=== PATIENT | female | born 1960 | race Caucasian/White ===

== ENCOUNTER → 2017-04-23 | Outpatient (CLI) | payer OTHER, MEDICARE ==
[~2017-04-23] MED LIST: ACET-1757 PO; BENZ100C4 PO; BISA10SU2 PR; CARV-39 PO; CEFD300C37 PO; COREG; DARB25DI SQ; DILANTIN; DOCU100T3 PO; DOXY100C2 PO; DOXY100T PO; ESCI5TAB7 PO; HEPA500024 SQ; HYDR-3240 PO; LANS30CA16 PO; LEXAPRO; LISI-167 PO; LISINOPRIL; PANT40TA3 PO; PHEN30CA PO; PREVACID
[2017-04-23 11:43] LABS: ASPARTATE AMINO TRANSFERASE 13 U/L (15-37); BLOOD UREA NITROGEN 42 mg/dL (7-18)
== END | disposition home or self-care (01) ==
LOC: STAR 10:15
PROVIDERS: ATTEND Surgery
DX: Z01.818 Encounter for other preprocedural examination (principal); C50.912 Malignant neoplasm of unspecified site of left female breast; R79.1 Abnormal coagulation profile
CPT/HCPCS: 36415; 80053; 85025; 85610; 85730; 93005

== ENCOUNTER → 2017-04-28 | Outpatient (CLI) | payer OTHER, MEDICARE | END | disposition home or self-care (01) | LOC: CFH 06:50 | PROVIDERS: ATTEND Surgery | DX: C50.912 Malignant neoplasm of unspecified site of left female breast (principal); R59.0 Localized enlarged lymph nodes ==

== ENCOUNTER 2017-04-30 07:46 | Day surgery (SDC) | payer OTHER, MEDICARE ==
[~2017-04-30] VITALS: Ht 152.4 cm; Wt 44.0 kg
[~2017-04-30 07:46] MED LIST changes: +BUPIVACAINE/PF-EPI 0.25% 1:200K ONE
[2017-04-30] MEDS ORDERED: SODIUM BICARBONATE 4.2%, 5ML ONE (08:06)
[2017-04-30] MEDS ORDERED: LIDOCAINE 1%, 20ML ONE (08:06)
[2017-04-30 09:02] VITALS: BP 123/73
[2017-04-30] MEDS ORDERED: LACTATED RINGERS 1,000 ML IV SCH (09:04)
[2017-04-30] MEDS ORDERED: SODIUM CHLORIDE 0.9% 1,000 ML IV SCH (09:11)
[2017-04-30] MEDS ORDERED: FENTANYL PF 250 MCG/5ML ONE (09:31)
[2017-04-30] MEDS ORDERED: MIDAZOLAM 1 MG/ML, 2ML ONE (09:31)
[2017-04-30] MEDS ORDERED: LIDOCAINE 1%, 2ML ONE (10:03)
[2017-04-30] MEDS ORDERED: ISOSULFAN BLUE 10 MG/ML, 5ML IV ONE (10:35)
[2017-04-30] MEDS ORDERED: CEFAZOLIN 1,000 MG ONE (10:40)
[2017-04-30] MEDS ORDERED: PROPOFOL 10 MG/ML, 20ML ONE (10:40)
[2017-04-30] MEDS ORDERED: DEXAMETHASONE 4 MG/ML, 1ML ONE (10:40)
[2017-04-30] MEDS ORDERED: EPHEDRINE 50 MG/ML, 1ML ONE (10:40)
[2017-04-30] MEDS ORDERED: ONDANSETRON 2MG/ML, 2ML ONE (10:40)
[2017-04-30] MEDS ORDERED: PHENYLEPHRINE 10 MG/ML ONE (10:40)
[2017-04-30] MEDS ORDERED: hydrALAzine 20 MG/ML, 1ML IV PRN (11:30)
[2017-04-30] MEDS ORDERED: FENTANYL PF 100 MCG/2ML IV PRN (11:30)
[2017-04-30] MEDS ORDERED: ALBUTEROL/IPRATROPIUM 2.5MG/0.5MG, 3 ML NPPB PRN (11:30)
[2017-04-30] MEDS ORDERED: MIDAZOLAM 1 MG/ML, 2ML IV PRN (11:30)
[2017-04-30] MEDS ORDERED: ONDANSETRON 2MG/ML, 2ML IVPush PRN (11:30)
[2017-04-30] MEDS ORDERED: PROMETHAZINE 25 MG/ML, 1ML IV PRN (11:30)
[2017-04-30] MEDS ORDERED: HYDROmorphone 1 MG/ML, 1ML IV PRN (11:30)
[2017-04-30] MEDS ORDERED: OXYcodone 5 MG/5 ML ORAL.SOL UDC PO PRN (11:30)
[2017-04-30] MEDS ORDERED: LABETALOL 5MG/ML, 20ML IV PRN (11:30)
[2017-04-30] MEDS ORDERED: ACETAMINOPHEN 325 MG TABLET PO PRN (11:30)
[2017-04-30] MEDS ORDERED: FENTANYL PF 100 MCG/2ML ONE (12:49)
[2017-04-30] MEDS ORDERED: ACETAMINOPHEN 650 MG/20.3 ML UDC ONE (12:49)
[2017-04-30] MEDS ORDERED: ACETAMINOPHEN 325 MG TABLET ONE (12:50)
[2017-04-30] MEDS ORDERED: OXYcodone 5 MG/5 ML ORAL.SOL UDC ONE (12:50)
== END 2017-04-30 15:15 | disposition home or self-care (01) ==
LOC: OUT 07:46 → EDSTATUS 10:30 → OUT 15:15
PROVIDERS: ATTEND Surgery
DX: C50.512 Malignant neoplasm of lower-outer quadrant of left female breast (principal); D24.2 Benign neoplasm of left breast; G40.909 Epilepsy, unspecified, not intractable, without status epilepticus; I12.0 Hypertensive chronic kidney disease with stage 5 chronic kidney disease or end stage renal disease; N18.6 End stage renal disease; Z99.2 Dependence on renal dialysis; K21.9 Gastro-esophageal reflux disease without esophagitis; Z86.73 Personal history of transient ischemic attack (TIA), and cerebral infarction without residual deficits; I25.10 Atherosclerotic heart disease of native coronary artery without angina pectoris; I25.2 Old myocardial infarction; Z87.891 Personal history of nicotine dependence; F32.9 Major depressive disorder, single episode, unspecified; Z95.828 Presence of other vascular implants and grafts
CPT/HCPCS: 19303; 38525; 38792; 88307; 88333; A9541; C1729; J0690; J1100; J2250; J2370; J2405; J2704; J3010; J3490

== ENCOUNTER → 2017-06-04 | Outpatient (CLI) | payer OTHER, MEDICARE ==
[~2017-06-04] MED LIST changes: -BUPIVACAINE/PF-EPI 0.25% 1:200K ONE
== END | disposition home or self-care (01) ==
LOC: CFH 08:34
PROVIDERS: ATTEND Internal Medicine Hematology & Oncology
DX: Z13.820 Encounter for screening for osteoporosis (principal); M85.88 Other specified disorders of bone density and structure, other site; C50.512 Malignant neoplasm of lower-outer quadrant of left female breast
CPT/HCPCS: 77080

== ENCOUNTER 2018-01-04 02:13 | Emergency (ER) | payer OTHER, MEDICARE ==
[~2018-01-04] VITALS: Ht 152.4 cm; Wt 45.3 kg
[~2018-01-04 02:13] MED LIST changes: +BENZ-17 PO; -BENZ100C4 PO; -LANS30CA16 PO; +LANS30CA60 PO
[2018-01-04 03:17] VITALS: BP 102/58
== END 2018-01-04 04:27 | disposition home or self-care (01) ==
LOC: ED 04:04
DX: J02.8 Acute pharyngitis due to other specified organisms (principal); I10 Essential (primary) hypertension; I25.2 Old myocardial infarction; Z87.891 Personal history of nicotine dependence; Z99.2 Dependence on renal dialysis
CPT/HCPCS: 71046; 93005; 99284

== ENCOUNTER → 2018-05-27 | Outpatient (CLI) | payer OTHER, MEDICARE | END | disposition home or self-care (01) | LOC: CFH 06:53 | PROVIDERS: ATTEND Internal Medicine Hematology & Oncology | DX: C50.512 Malignant neoplasm of lower-outer quadrant of left female breast (principal) | CPT/HCPCS: 76377; 76642 ==

== ENCOUNTER → 2019-03-14 | Outpatient (CLI) | payer MEDICARE, OTHER | END | disposition home or self-care (01) | LOC: CFH 09:52 | PROVIDERS: ATTEND Internal Medicine Hematology & Oncology | DX: Z12.31 Encounter for screening mammogram for malignant neoplasm of breast (principal); R23.4 Changes in skin texture; Z90.12 Acquired absence of left breast and nipple | CPT/HCPCS: 77067 ==

== ENCOUNTER 2019-06-07 12:14 | Outpatient (CLI) | payer MEDICARE, OTHER | END 2019-06-07 23:59 | disposition home or self-care (01) | LOC: CFH 12:14 | PROVIDERS: ATTEND Internal Medicine Hematology & Oncology | DX: Z08 Encounter for follow-up examination after completed treatment for malignant neoplasm (principal); M85.88 Other specified disorders of bone density and structure, other site; Z85.3 Personal history of malignant neoplasm of breast; Z90.12 Acquired absence of left breast and nipple | CPT/HCPCS: 76641; 77080 ==

== ENCOUNTER 2020-06-11 11:02 | Emergency (ER) | payer MEDICARE ==
[~2020-06-11] VITALS: Ht 152.4 cm; Wt 42.2 kg
[~2020-06-11 11:02] MED LIST changes: -ACET-1757 PO; +ACET-2065 PO; +AMOX1TAB12 PO; -BISA10SU2 PR; +BISA10SU4 PR; +GUAI200T37 PO
--- NOTE | 2020-06-11 11:25 | NUR ---
FIRST CONTACT WITH PT. PT BECAME DIZZY, FELL AND HIT BACK OF HEAD ON CEMENT ON THURSDAY. STATED SWELLING HAS REDUCED, STILL HAS MICHAUD, DENIED LOC AT SCENE. PT'S AOX4. RESPS EVEN AND UNLABORED. ALL MONITORS IN PLACE. 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 EDMD AT BEDSIDE EVALUATING AT THIS TIME. PT'S AT BEDSIDE WELL.
[2020-06-11] MEDS ORDERED: ACETAMINOPHEN 500 MG TABLET ONE (11:28)
[2020-06-11] MEDS ORDERED: ACETAMINOPHEN 500 MG TABLET PO ONE (11:30)
--- NOTE | 2020-06-11 11:36 | NUR ---
PT TO CT AT THIS TIME.
--- NOTE | 2020-06-11 11:36 | NUR ---
PT MEDICATED PER EMAR FOR PAIN. PT TOLERATED WELL.
[2020-06-11 12:27] VITALS: BP 96/51
--- NOTE | 2020-06-11 12:28 | NUR ---
Patient given discharge instructions and they have confirmed that they understand the instructions. PT HAS HYPOTENSION AT DC(96/51), EDMD NOTIFIED AND PT'S STATED"HER BP IS ALWAYS LOW." EDMD OK'D TO DC NOW.
== END 2020-06-11 12:29 | disposition home or self-care (01) ==
LOC: ED 11:59
DX: S00.03XA Contusion of scalp, initial encounter (principal); S09.90XA Unspecified injury of head, initial encounter; I10 Essential (primary) hypertension; R42 Dizziness and giddiness; R94.31 Abnormal electrocardiogram [ECG] [EKG]; M54.2 Cervicalgia; R51 Headache; I25.2 Old myocardial infarction; Z86.73 Personal history of transient ischemic attack (TIA), and cerebral infarction without residual deficits; W18.30XA Fall on same level, unspecified, initial encounter; Y93.89 Activity, other specified; Y92.009 Unspecified place in unspecified non-institutional (private) residence as the place of occurrence of the external cause; Y99.8 Other external cause status
CPT/HCPCS: 70450; 72125; 93005; 99285

== ENCOUNTER 2021-07-18 18:47 | Inpatient (IN) | payer MEDICARE, OTHER ==
[~2021-07-18] VITALS: Ht 152.4 cm; Wt 42.2 kg
[~2021-07-18 18:47] MED LIST changes: +HYDR-2214 PO; -HYDR-3240 PO
--- NOTE | 2021-07-18 19:18 | NUR ---
PT BROUGHT TO ROOM 21. CARE ASSUMED. 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
[2021-07-18] MEDS ORDERED: DEXAMETHASONE 4 MG TABLET ONE (19:23)
[2021-07-18] MEDS ORDERED: DIPHENHYDRAMINE 25 MG CAPSULE ONE (19:23)
[2021-07-18] MEDS ORDERED: FAMOTIDINE 20 MG TABLET ONE (19:23)
[2021-07-18] MEDS ORDERED: DEXAMETHASONE 4 MG TABLET PO ONE (19:30)
[2021-07-18] MEDS ORDERED: FAMOTIDINE 20 MG TABLET PO ONE (19:30)
[2021-07-18] MEDS ORDERED: DIPHENHYDRAMINE 25 MG CAPSULE PO ONE (19:30)
[2021-07-18] MEDS ORDERED: PLEASE ENTER HEIGHT AND WEIGHT MC SCH (19:30)
--- NOTE | 2021-07-18 20:16 | NUR ---
PT MOVED TO TRAUMA 3 ROOM, FOR INCREASED VIGILANCE PT HAS SWELLING TO THROAT, AND MOVED PER DR SMITH REQUEST. PT RESTING COMFORTABLY, O2 SAT 99%, CALM AND COOPERATIVE AND NO APPARENT RESP DISTRESS AT THIS TIME. PT PLACED ON CR MONITOR.
[2021-07-18] MEDS ORDERED: DIPHENHYDRAMINE 50 MG/ML, 1ML ONE (20:23)
[2021-07-18] MEDS ORDERED: EPINEPHRINE 1 MG/ML, 1ML ONE ×2 (20:23→21:30)
[2021-07-18] MEDS ORDERED: EPINEPHRINE 1 MG/ML, 1ML IM ONE ×2 (20:30→21:30)
[2021-07-18] MEDS ORDERED: DIPHENHYDRAMINE 50 MG/ML, 1ML IVPush ONE (20:30)
[2021-07-18] MEDS ORDERED: SODIUM CHLORIDE FLUSH 10ML SYR IVF ONE (20:30)
--- NOTE | 2021-07-18 20:36 | NUR ---
PIV TO LEFT HAND X2 ATTEMPT PLACED BY TASK RN, 22G AND FLUSHES SLOWLY. MEDS GIVEN PER MD ORDER. PT NOW HAVING EMESIS, CLEAR SECRETIONS. SUCTION SET UP AND AT BEDSIDE TO ASSIST PT. PT WITH EMESIS BAGS AND TOWELS PROVIDED. PT SAYS SHE HAS PAIN TO THE RIGHT SIDE OF HER BUTTOCKS. PT REPOSITIONED.
--- NOTE | 2021-07-18 20:46 | NUR ---
PT TAKEN TO CT SCAN, RN WITH PT, AND PT ON CR MONITOR.
[2021-07-18] MEDS ORDERED: OMNIPAQUE 350 MG/ML, 100ML BOTTLE ONE (20:54)
[2021-07-18 21:00] LABS: BASOPHILS % (AUTO) 1 % (0-1); EOSINOPHILS % (AUTO) 2 % (1-7); LYMPHOCYTES % (AUTO) 20 % (22-44); MEAN CORPUSCULAR HGB CONC 33.8 g/dL (32.4-35.8); MEAN PLATELET VOLUME 8.3 fL (7.4-10.4); MONOCYTES % (AUTO) 14 % (2-9); NEUTROPHILS % (AUTO) 63 % (42-75); PLATELET COUNT 106 x10^3/uL (130-400); RED BLOOD COUNT 2.51 x10^6/uL (3.82-5.3); RED CELL DISTRIBUTION WIDTH 13.5 % (9.6-15.2)
[2021-07-18 21:09] LABS: ALBUMIN 3.2 g/dL (3.4-5.0); ANION GAP 4 mmol/L (5-15); CALCIUM 8.2 mg/dL (8.5-10.1); CHLORIDE 99 mmol/L (98-107); CREATININE 4.93 mg/dL (0.55-1.02)
[2021-07-18] MEDS ORDERED: DEXAMETHASONE 4 MG/ML, 1ML ONE (21:30)
[2021-07-18] MEDS ORDERED: DEXAMETHASONE 4 MG/ML, 1ML IVPush ONE (21:30)
[2021-07-18] MEDS ORDERED: FAMOTIDINE 20 MG/2 ML ONE (21:43)
--- NOTE | 2021-07-18 21:49 | NUR ---
ENT MD AT BEDSIDE SPEAKING WITH PT AND TO PERFORM SCOPE OF THE THROAT. PT AWAKE AND ALERT, AIRWAY CURRENTLY INTACT. GOOD AERATION AND OXYGENATION, O2 SATS 98%
--- NOTE | 2021-07-18 21:58 | NUR ---
ENT SCOPED PTS NASOPHARYNGEAL AREA. PT TOLERATED WELL. PT TO BE ADMITTED, PER MD.
[2021-07-18] MEDS ORDERED: FAMOTIDINE 20 MG/2 ML IVPush ONE (22:00)
--- NOTE | 2021-07-18 22:21 | NUR ---
PT RESTING COMFORTABLY, NO ACUTE DISTRESS. AIRWAY INTACT AND OPEN, PT ON CR MONITOR, AND O2 SAT IS 95%.
--- NOTE | 2021-07-18 22:44 | NUR ---
WAITING ON BLOOD TYPE AND SCREEN RESULTS TO BE DONE TO TRANSFUSE PT WITH [facility]. PT RESTING COMFORTABLY, AND PLACED ON O2 NC FOR COMFORT. PT SLEEPING WITH LEGS DRAWN UP IN POSITION OF COMFORT, AND O2 SATS WERE 92% ON ROOM AIR. PT NOW 99% ON 2LPM NC. PT CALM AND COOPERATIVE. PTS WENT HOME FOR THE NIGHT. PER THE , THE PT HAS DIALYSIS TOMORROW THAT SHE WILL NEED. PT AND ADVISED THEY WILL BE TAKING CARE OF THAT HERE.
--- NOTE | 2021-07-18 23:08 | NUR ---
HOSPITALIST TO BEDSIDE TO [facility] PT.
[2021-07-18] MEDS ORDERED: POLYETHYLENE GLYCOL 17 GM PACKET PO PRN (23:30)
[2021-07-18] MEDS ORDERED: HYDROmorphone 2 MG/ML, 1ML IVPush PRN (23:30)
[2021-07-18] MEDS ORDERED: LABETALOL 5MG/ML, 20ML IVPush PRN (23:30)
[2021-07-18] MEDS ORDERED: ONDANSETRON 2MG/ML, 2ML IVPush PRN (23:30)
[2021-07-18 23:31] VITALS: BP 96/58
--- NOTE | 2021-07-18 23:33 | NUR ---
[facility] TRANSFUSION STARTED. SEE TRANSFUSION DOCUMENT.
[2021-07-19] VITALS: BP 105/52
--- NOTE | 2021-07-19 00:03 | NUR ---
REPORT AND CARE TO GREGG RN, IN CCU. PT TRANSFERRED TO ROOM 547 WITHOUT INCIDENT. [facility] INFUSING VIA 22G LEFT WRIST PIV, SITE SOFT AND FLAT AND NO REDNESS NOTED AT THIS TIME. PT CARE TRANSFERRED TO MRI ASSISTANT.
[2021-07-19 01:00] VITALS: BP 113/56
[2021-07-19 02:00] VITALS: BP 114/57
[2021-07-19 04:34] LABS: ANION GAP 7 mmol/L (5-15); BASOPHILS % (AUTO) 0 % (0-1); CALCIUM 8.8 mg/dL (8.5-10.1); CHLORIDE 97 mmol/L (98-107); CREATININE 5.38 mg/dL (0.55-1.02); EOSINOPHILS % (AUTO) 0 % (1-7); LYMPHOCYTES % (AUTO) 5 % (22-44); MEAN CORPUSCULAR HEMOGLOBIN 34.4 pg (27.0-34.8); MEAN CORPUSCULAR HGB CONC 34.2 g/dL (32.4-35.8); MEAN PLATELET VOLUME 8.2 fL (7.4-10.4); MONOCYTES % (AUTO) 3 % (2-9); NEUTROPHILS % (AUTO) 92 % (42-75); PLATELET COUNT 107 x10^3/uL (130-400); RED BLOOD COUNT 2.59 x10^6/uL (3.82-5.3); RED CELL DISTRIBUTION WIDTH 13.4 % (9.6-15.2)
[2021-07-19] MEDS: HEPARIN 5,000 UNITS/ML, 1ML SQ SCH ×3 (04:55→21:42)
[2021-07-19] MEDS: DEXAMETHASONE 4 MG/ML, 5ML IVPush SCH ×3 (04:55→21:41)
[2021-07-19 07:33] LABS: ALBUMIN 3.4 g/dL (3.4-5.0); BILIRUBIN, DIRECT 0.2 mg/dL (0.1-0.2)
[2021-07-19 07:35] LABS: BILIRUBIN,INDIRECT 0.4 mg/dL (0.0-2.0); BILIRUBIN,TOTAL 0.6 mg/dL (0.2-1.0); TOTAL PROTEIN 7.8 g/dL (6.4-8.2)
[2021-07-19] MEDS ORDERED: FAMOTIDINE 20 MG/2 ML IVPush SCH (09:00)
[2021-07-19] MEDS ORDERED: ARANESP 100 MCG/ML **ESRD SQ SCH (10:00)
[2021-07-19] MEDS ORDERED: ALBUMIN HUMAN 25% 100 ML IV PRN (16:00)
[2021-07-19] MEDS: DEXAMETHASONE 4 MG/ML, 1ML IVPush SCH (21:30)
[2021-07-19 21:39] VITALS: BP 116/71
[2021-07-20 03:55] VITALS: BP 121/73
[2021-07-20 05:35] LABS: ALBUMIN 3.7 g/dL (3.4-5.0); ANION GAP 6 mmol/L (5-15); BASOPHILS % (AUTO) 0 % (0-1); CALCIUM 9.1 mg/dL (8.5-10.1); CHLORIDE 100 mmol/L (98-107); EOSINOPHILS % (AUTO) 0 % (1-7); LYMPHOCYTES % (AUTO) 5 % (22-44); MEAN CORPUSCULAR HEMOGLOBIN 35.1 pg (27.0-34.8); MEAN CORPUSCULAR HGB CONC 34.9 g/dL (32.4-35.8); MEAN PLATELET VOLUME 8.8 fL (7.4-10.4); MONOCYTES % (AUTO) 4 % (2-9); NEUTROPHILS % (AUTO) 91 % (42-75); PLATELET COUNT 111 x10^3/uL (130-400); RED BLOOD COUNT 2.59 x10^6/uL (3.82-5.3); RED CELL DISTRIBUTION WIDTH 13.5 % (9.6-15.2)
[2021-07-20] MEDS: DEXAMETHASONE 4 MG/ML, 1ML IVPush SCH ×2 (06:36→12:44)
[2021-07-20] MEDS: HEPARIN 5,000 UNITS/ML, 1ML SQ SCH ×2 (06:37→12:43)
[2021-07-20 07:31] VITALS: BP 95/59
[2021-07-20] MEDS ORDERED: FAMOTIDINE 20 MG/2 ML IVPush SCH (09:00)
[2021-07-20 13:30] VITALS: BP 90/50
[2021-07-20] MEDS ORDERED: DEXA4TAB66 PO (14:59)
[2021-07-20] MEDS ORDERED: DEXAMETHASONE 4 MG TABLET PO SCH (17:00)
== END 2021-07-20 16:11 | disposition home or self-care (01) | DRG 915 ==
LOC: ED 21:31 → EDIP 22:53 → CCU 23:51 → 4EST 07-19 18:22
PROVIDERS: ADMIT Internal Medicine; ATTEND Internal Medicine
PROC: 30233K1 Transfusion of Nonautologous Frozen Plasma into Peripheral Vein, Percutaneous Approach (ICD-10-PCS; principal; 2021-07-18)
DX: T78.3XXA Angioneurotic edema, initial encounter (principal); J96.01 Acute respiratory failure with hypoxia; N18.6 End stage renal disease; D61.818 Other pancytopenia; E87.1 Hypo-osmolality and hyponatremia; I50.32 Chronic diastolic (congestive) heart failure; I13.2 Hypertensive heart and chronic kidney disease with heart failure and with stage 5 chronic kidney disease, or end stage renal disease; I42.8 Other cardiomyopathies; D53.9 Nutritional anemia, unspecified; D63.1 Anemia in chronic kidney disease; E11.22 Type 2 diabetes mellitus with diabetic chronic kidney disease; E87.6 Hypokalemia; E88.09 Other disorders of plasma-protein metabolism, not elsewhere classified; I25.2 Old myocardial infarction; I34.0 Nonrheumatic mitral (valve) insufficiency; Z20.822 Contact with and (suspected) exposure to COVID-19; Z85.3 Personal history of malignant neoplasm of breast; Z86.718 Personal history of other venous thrombosis and embolism; Z86.73 Personal history of transient ischemic attack (TIA), and cerebral infarction without residual deficits; Z87.891 Personal history of nicotine dependence; Z90.10 Acquired absence of unspecified breast and nipple; Z99.2 Dependence on renal dialysis
CPT/HCPCS: 36415; 70491; 80048; 80069; 80076; 82040; 83735; 85025; 86160; 86705; 86706; 86850; 86900; 87081; 87340; 93005; 96372; 96374; 96375; 99292; G0378; J0171; J0882; J1100; J1644; Q9967; U0005; J1200; P9017; Q0163; U0003

== ENCOUNTER 2021-07-23 20:53 | Emergency (ER) | payer MEDICARE ==
[~2021-07-23] VITALS: Ht 152.4 cm; Wt 45.6 kg
[~2021-07-23 20:53] MED LIST changes: +DEXA4TAB66 PO
[2021-07-23 20:58] VITALS: BP 98/60
[2021-07-23] MEDS ORDERED: DEXAMETHASONE 4 MG/ML, 1ML PO ONE (21:00)
--- NOTE | 2021-07-23 23:31 | NUR ---
filler block inserter remover: patient signed out AMA with registration.
== END 2021-07-23 23:33 | disposition left against medical advice (07) ==
LOC: ED 21:15
DX: B34.9 Viral infection, unspecified (principal); Z20.822 Contact with and (suspected) exposure to COVID-19
CPT/HCPCS: 71045; 99284; U0003; U0005